=== PATIENT | female | born 1990 | race Caucasian/White ===

== ENCOUNTER 2020-05-03 21:42 | Emergency (ER) | payer OTHER ==
[~2020-05-03] VITALS: Ht 170.2 cm; Wt 70.3 kg
--- NOTE | 2020-05-03 21:47 | NUR ---
BIBSELF C/O FEVER AND SORE THROAT X4HR SENIOR CONSULTING MANAGER. PT STATES HE TOOK TYLENOL 975MG PO @ 2100. PT FEBRILE ON ARRIVAL. PT AAOX4. AMBULATORY WITH STEADY GAIT. RESPRIATIONS EVEN AND UNLABORED. NO ACUTE DISTRESS NOTED AT THIS TIME.
[2020-05-03] MEDS ORDERED: AMOX500C2 PO (22:14)
[2020-05-03] MEDS ORDERED: IBUPROFEN 600 MG TABLET PO ONE (22:30)
[2020-05-03 22:42] VITALS: BP 127/84
--- NOTE | 2020-05-03 22:42 | NUR ---
Patient discharged to home in stable condition. Written and verbal after care instructions given. Patient verbalizes understanding of instruction.Pt ambulatory with a steady gait
== END 2020-05-03 22:42 | disposition home or self-care (01) ==
LOC: ER 21:45
DX: J03.90 Acute tonsillitis, unspecified (principal); Z20.822 Contact with and (suspected) exposure to COVID-19
CPT/HCPCS: 87070; 87880; 99283; C9803; U0003; 86403-TC